=== PATIENT | male | born 1975 | race Caucasian/White ===

== ENCOUNTER 2022-07-03 18:25 | Emergency (ER) | payer MEDICAID ==
[~2022-07-03] VITALS: Ht 157.5 cm; Wt 87.1 kg
[~2022-07-03 18:25] MED LIST: IBUP-44
[2022-07-03 18:36] VITALS: BP 140/100
--- NOTE | 2022-07-03 18:55 | NUR ---
PT AMBULATED TO ROOM 7
[2022-07-03] MEDS ORDERED: TETRACAINE HCL/PF 0.5% OPTH 4 ML BTL OP ONE (19:00)
[2022-07-03] MEDS ORDERED: FLUORESCEIN OPTH STRIP 1 MG OP ONE (19:00)
--- NOTE | 2022-07-03 19:15 | NUR ---
47YR OLD MALE BIB SELF C/O R EYE PAIN [id number]. DENIES INJURY OR TRAUMA. R EYE RED WITH BLURRED VISION. SHARP 5/10 PAIN. PT IS A&OX4. FAMILY AT BEDSIDE. DANISH SPEAKING. HOB ELEVATED. NKDA NO MED HX
[2022-07-03 19:20] VITALS: BP 140/100
[2022-07-03] MEDS ORDERED: TOMOMETER 1 DEV DEV MC ONE (19:27)
--- NOTE | 2022-07-03 19:36 | NUR ---
ANDREA WAY AT BEDSIDE
[2022-07-03] MEDS ORDERED: OLOP2.5D7 OP (19:43)
--- NOTE | 2022-07-03 19:48 | NUR ---
Chart checked and completed.
--- NOTE | 2022-07-03 19:48 | NUR ---
Patient discharged with v/s stable. Written and verbal after care instructions given and explained. Patient verbalized understanding. Ambulatory with steady gait. All questions addressed prior to discharge. Advised to follow up with PMD.
== END 2022-07-03 19:48 | disposition home or self-care (01) ==
LOC: MED 18:25
DX: H10.11 Acute atopic conjunctivitis, right eye (principal); F17.210 Nicotine dependence, cigarettes, uncomplicated; Z79.899 Other long term (current) drug therapy
CPT/HCPCS: 99283